=== PATIENT | male | born 1995 | race Hispanic/Latino ===

== ENCOUNTER 2018-02-12 04:25 | Emergency (ER) | payer OTHER, MEDICAID ==
[2018-02-12] MEDS: LIDOCAINE W/EPINEPHRINE 1% 20ML VIAL SC (05:26)
[2018-02-12] MEDS: TETANUS/DIPHTHERIA TOX ADSORB ADULT 0.5ML SYR/VIAL (90714) IM (06:17)
[2018-02-12] MEDS: AUGMENTIN 875 MG TAB PO (06:17)
== END 2018-02-12 06:32 | disposition home or self-care (01) ==
LOC: M ED 04:25
DX: S01.511A Laceration without foreign body of lip, initial encounter (principal); S01.01XA Laceration without foreign body of scalp, initial encounter; V43.02XA Car driver injured in collision with other type car in nontraffic accident, initial encounter; Y92.9 Unspecified place or not applicable; Y93.9 Activity, unspecified
CPT/HCPCS: 90714

== ENCOUNTER 2023-02-17 14:14 | Emergency (ER) | payer OTHER ==
[~2023-02-17] VITALS: Ht 175.3 cm; Wt 104.1 kg
[2023-02-17 14:14] VITALS: BP 134/82
[~2023-02-17 14:14] MED LIST: AUGM875T28 PO
[2023-02-17] MEDS ORDERED: BOOSTRIX/ADACEL VACCINE (DIPHTH/PERTUSS/ACELL/TETANUS) 0.5ML SYR IM ONE (15:45)
== END 2023-02-17 16:14 | disposition home or self-care (01) ==
LOC: M ED 14:14
DX: S61.214A Laceration without foreign body of right ring finger without damage to nail, initial encounter (principal); S61.216A Laceration without foreign body of right little finger without damage to nail, initial encounter; W25.XXXA Contact with sharp glass, initial encounter; Y92.89 Other specified places as the place of occurrence of the external cause; Y93.89 Activity, other specified; Y99.0 Civilian activity done for income or pay